=== PATIENT | female | born 1945 ===

== ENCOUNTER 2018-08-30 06:06 | Day surgery (SDC) | payer MEDICARE, OTHER ==
[2018-08-27 08:49] VITALS: BMI 25.5
[2018-08-30 07:01] LABS: BLOOD UREA NITROGEN 14 mg/dL (7-21); CALCIUM 9.1 mg/dL (8.4-10.5); GFR NON-AFRICAN AMERICAN > 60
[2018-08-30] MEDS ORDERED: Iodixanol 320 MG/ML 200 ML BOTTLE IV ONE (07:01)
[2018-08-30] MEDS ORDERED: Lidocaine 2% PF (10 ml) Amp ONE (07:01)
[2018-08-30] MEDS ORDERED: Iodixanol 320 MG/ML 100 ML BOTTLE IV ONE (07:01)
[2018-08-30] MEDS ORDERED: Iohexol 350mgl/ml 50 ML ONE (07:01)
[2018-08-30 07:18] LABS: BASO # 0.02 K/mm3 (0.0-2.0); BASO % 0.3 % (0.0-3.0); EOS # 0.1 (0.0-0.7); EOS % 2.2 % (1.5-5.0); GRAN # 4.41 (1.4-6.5); GRAN % 68.3 % (50.0-68.0); HEMOGLOBIN 12.8 g/dL (12.0-16.0); LYMPH # 1.5 (1.2-3.4); LYMPH % 23.5 % (22.0-35.0); MEAN CELL VOLUME 91.9 fl (80.0-105.0); MEAN CORPUSCULAR HEMOGLOBIN 28.9 pg (25.0-35.0); MEAN CORPUSCULAR HGB CONC 31.4 g/dl (31.0-37.0); MEAN PLATELET VOLUME 11.4 fl (7.0-11.0); MONO # 0.4 (0.1-0.6); MONO % 5.7 % (1.0-6.0); RBC 4.43 10^6/uL (3.5-6.1); WHITE BLOOD COUNT 6.5 10^3/ul (4.5-11.0)
[2018-08-30 07:19] LABS: INR 0.96; PARTIAL THROMBOPLASTIN TIME 27.8 Seconds (25.1-36.5)
[2018-08-30] MEDS ORDERED: Midazolam 2 MG/2 ML VIAL ONE ×2 (07:42→07:46)
[2018-08-30] MEDS ORDERED: Sodium Chloride 0.9% 1,000 ML IV SCH (08:15)
--- NOTE | 2018-08-30 08:41 | CARDCATH ---
PROCEDURE DATE: 08/30/2018 HISTORY OF PRESENT ILLNESS: The patient is a 73-year-old woman who presents with exertional dyspnea. Because of this, a stress test was performed. Stress test revealed anterior apical ischemia with a normal LV function. Because of this, cardiac catheterization was recommended. PROCEDURE: Left heart catheterization with coronary arteriography and left ventriculogram. Right femoral artery was cannulated with a 6-Trinidadian sheath. There were no complications. I performed moderate sedation which included the presence of an independent trained observer to observe her consciousness as well as physiologic status. After administration of fentanyl and Versed, my intra service time was 15 minutes. The findings on catheterization revealed a left ventricle that contracted normally. Estimated ejection fraction is 65%-70%. Her coronary anatomy revealed a right dominant circulation. The RCA was unremarkable. The left main artery was within normal limits. The LAD and diagonal vessels revealed mild intimal irregularities without significant stenosis. The circumflex artery and obtuse marginal branches were free of significant disease. Angio-Seal was used to close the femoral artery site. The patient tolerated the procedure well. In summary, the procedure revealed unremarkable coronary arteries with normal LV function. Given these findings, the cardiac status is normal. There is no cardiac cause of her exertional dyspnea. We will continue a cardiac risk reduction program. Manuel Manuel MD
[2018-08-30 09:29] VITALS: RESP 18; TEMP 97.8
[2018-08-30 11:54] VITALS: BP 128/64; PULSE 71; O2SAT 97
== END 2018-08-30 14:15 | disposition home or self-care (01) ==
LOC: CATH 06:06
PROVIDERS: ATTEND Internal Medicine Cardiovascular Disease
DX: R06.00 Dyspnea, unspecified (principal)
CPT/HCPCS: 36415; 80048; 85025; 85610; 85730; 86850; 86900; 93458; 99152; C1769; C2629; J1644; J2250; J3010; J7030; J7040; Q9966

== ENCOUNTER 2019-04-08 07:29 | Outpatient (CLI) | payer MEDICARE, OTHER | END 2019-04-08 07:30 | disposition home or self-care (01) | LOC: RAD 07:29 | DX: K76.0 Fatty (change of) liver, not elsewhere classified (principal) ==